=== PATIENT | male | born 1955 | race Caucasian/White ===

== ENCOUNTER 2021-01-04 16:59 | Emergency (ER) | payer OTHER, MEDICARE ==
[2021-01-04] MEDS ORDERED: Doxycycline 100 MG Cap ONE (17:15)
--- NOTE | 2021-01-04 17:34 | EDM.PDOC ---
ED HPI GENERAL MEDICAL PROBLEM - General Chief Complaint: Bite:Animal, Insect Stated Complaint: TICK BITE Time Seen by Provider: 01/04/21 17:11 Source of Information: Reports: Patient, RN Notes Reviewed History Limitations: Reports: No Limitations - History of Present Illness INITIAL COMMENTS - FREE TEXT/NARRATIVE: This patient presents to the the ED for evaluation of a tick bite. He states he got it when he was outdoors on 01/02. He denies fever, cough, other symptoms or concerns. ED ROS GENERAL - Review of Systems Review Of Systems: Comprehensive ROS is negative, except as noted in HPI. ED EXAM, ANIMAL BITE - Physical Exam Exam: See Below Exam Limited By: No Limitations General Appearance: Alert, No Apparent Distress Eye Exam: Bilateral Eye: PERRL Ears: Normal External Exam Throat/Mouth: Normal Inspection Head: Atraumatic, Normocephalic Neck: Normal Inspection, Full Range of Motion Respiratory/Chest: No Respiratory Distress, No Accessory Muscle Use Back Exam: Normal Inspection Extremities: Normal Inspection Neurological: Alert, Oriented Skin Exam: Normal Color, Warm/Dry, Other (deer tick embedded in area just lateral to right CVA) Course - Vital Signs Last Recorded V/S: Last Vital Signs Temp 36.9 C 01/04/21 17:07 Pulse 63 01/04/21 17:07 Resp 18 01/04/21 17:07 BP 166/91 H 01/04/21 17:07 Pulse Ox 97 01/04/21 17:07 - Re-Assessments/Exams Free Text/Narrative Re-Assessment/Exam: 01/04/21 17:46 This patient presents after being bitten by a deer tick. There is no evidence of erythema migrans on exam today, and there are no signs or symptoms of systemic Lyme disease at this point. With this clinical history, antibiotics are indicated and we will start the patient on doxycycline. If the patient develops any other symptoms of systemic Lyme disease including joint problems, headaches, fevers, or other signs of illness, he will contact his primary care provider. If any of these develop he should return and he will be evaluated further, but in the meantime clinical observation in the outpatient setting is warranted. Departure - Departure Time of Disposition: 17:30 Disposition: Home, Self-Care 01 Condition: Good Clinical Impression: Tick bite - Discharge Information *PRESCRIPTION DRUG MONITORING PROGRAM REVIEWED*: No *COPY OF PRESCRIPTION DRUG MONITORING REPORT IN PATIENT VINI: No Instructions: Doxycycline tablets or capsules Forms: ED Department Discharge Additional Instructions: Take Doxycycline as prescribe. Pick-up the remaining dose of Doxycycline at pharmacy. Take medication with food. Sepsis Event Note (ED) - Evaluation Sepsis Screening Result: No Definite Risk - Focused Exam Vital Signs: Vital Signs Temp Pulse Resp BP Pulse Ox 01/04/21 17:07 36.9 C 63 18 166/91 H 97
== END 2021-01-04 17:20 | disposition home or self-care (01) ==
LOC: LB.ED 16:59
DX: T63.891A Toxic effect of contact with other venomous animals, accidental (unintentional), initial encounter (principal)
CPT/HCPCS: 99281; A9270